=== PATIENT | male | born 1955 | race Caucasian/White ===

== ENCOUNTER → 2020-03-18 07:18 | Outpatient (CLI) | payer OTHER, SELFPAY ==
--- NOTE | ~2020-03-18 | MR_ITS ---
EXAMINATION: MR knee LT wo con DATE: 03/18/2020 08:34 INDICATION: Left knee pain. TECHNIQUE: Magnetic resonance imaging (MRI) of the left knee was performed without intravenous contra st. Sequences included axial PD-weighted FS FSE, coronal PD-weighted FSE and PD-weighted FS FSE, sagi ttal PD-weighted FSE, and sagittal T2-weighted FS FSE. COMPARISON: None. FINDINGS: Medial compartment: There is a complex tear of body and posterior horn of medial meniscus. There is cartilage surface irr egularity of tibial condyle. There is shallow partial-thickness cartilage loss of femoral condyle, wo rst at the central articular surface. Marginal osteophytes are noted. Lateral compartment: Lateral meniscus is normal. There is extensive partial thickness cartilage loss of tibial condyle, de ep at the medial articular surface with mild subchondral edema-like marrow signal intensity. There is extensive partial thickness cartilage loss of femoral condyle, deep at the central articular surface . Marginal osteophytes are noted. Patellofemoral compartment: There is full-thickness cartilage loss of patellar lateral facet with cortical remodeling and moderat e subchondral edema-like marrow signal intensity. There is deep partial thickness cartilage loss of p atellar medial facet. There is full-thickness cartilage loss of lateral and central trochlea with cor tical remodeling and moderate subchondral edema-like marrow signal intensity. There is cartilage surf oskar irregularity of medial trochlea. Marginal osteophytes are noted. Ligaments and tendons: The anterior and posterior cruciate ligaments are normal. There are changes of prior sprains of media l collateral ligament and fibular collateral ligament characterized by increased signal intensity pro ximally. There is mild patellar tendinopathy. Fluid: There is a small knee joint effusion. There are loose bodies in the knee joint posteriorly measuring up to 6 mm. There is a moderate-sized South's cyst with loose bodies. There is mild prepatellar and s uperficial infrapatellar bursitis. IMPRESSION: 1. Severe chondrosis of patellofemoral compartment, moderate chondrosis of lateral compartment, and m ild chondrosis of medial compartment. 2. Tear of medial meniscus. 3. Small knee joint effusion with loose bodies. 4. Moderate-sized South's cyst with loose bodies. Reviewed, dictated and finalized at location A. [facility] OPERATOR IMPRESSION: 1. Severe chondrosis of patellofemoral compartment, moderate chondrosis of late ral compartment, and mild chondrosis of medial compartment. 2. Tear of medial meniscus. 3. Small knee joint effusion with loose bodies. 4. Moderate-sized South's cyst with loose bodies.
== END ==
DX: M23.42 Loose body in knee, left knee (principal); M25.462 Effusion, left knee; S83.242A Other tear of medial meniscus, current injury, left knee, initial encounter; X58.XXXA Exposure to other specified factors, initial encounter
CPT/HCPCS: 73721